=== PATIENT | female | born 1990 | race Caucasian/White ===

== ENCOUNTER 2020-11-20 12:53 | Emergency (ER) | payer BC ==
[~2020-11-20] VITALS: Ht 165.1 cm; Wt 53.5 kg
[2020-11-20] MEDS ORDERED: LIDOCAINE VISCOUS 2% UD 15 ML UDC MM ONE (13:00)
[2020-11-20] MEDS ORDERED: ONDANSETRON HCL/PF 4 MG/2 ML VIAL IVP ONE (13:00)
[2020-11-20] MEDS ORDERED: IV NS 0.9% 1,000 ML BAG IV ONE (13:00)
[2020-11-20] MEDS ORDERED: MAG HYDROX/AL HYDROX/SIMETH 30 ML UDC PO ONE (13:00)
[2020-11-20] MEDS ORDERED: FAMOTIDINE/PF INJ 20 MG/2 ML VIAL IV ONE ×2 (13:00→13:08)
[2020-11-20] MEDS ORDERED: MAG HYDROX/AL HYDROX/SIMETH 30 ML UDC ONE (13:07)
[2020-11-20] MEDS ORDERED: LIDOCAINE VISCOUS 2% UD 15 ML UDC ONE (13:07)
[2020-11-20] MEDS ORDERED: ONDANSETRON HCL/PF 4 MG/2 ML VIAL ONE (13:07)
[2020-11-20 13:17] LABS: BILIRUBIN,URINE Negative (NEGATIVE); COLOR,URINE YELLOW (YELLOW); LEUKOCYTE ESTERASE ,URINE Negative (NEGATIVE); NITRITE, URINE Negative (NEGATIVE); PH,URINE 8.5 (5.0-8.0); PROTEIN,URINE Negative (NEGATIVE); UGLUCOSE Negative (NEGATIVE); UROBILINOGEN,URINE 0.2 EU/dL (0.2)
[2020-11-20 13:18] LABS: BASOPHILS # (AUTO) 0.1 K/uL (0.0-0.2); EOSINOPHILS % (AUTO) 0.7 % (0.0-6.0); HEMATOCRIT 42 % (33-45); HEMOGLOBIN 14.1 g/dL (11.5-14.8); LYMPHOCYTES # (AUTO) 1.4 K/uL (0.8-4.8); LYMPHOCYTES % (AUTO) 10.8 % (20.0-44.0); MEAN CORPUSCULAR HGB CONC 33 g/dl (31.0-36.0); MEAN CORPUSCULAR VOLUME 92 fL (82-100); MONOCYTES # (AUTO) 0.7 K/uL (0.1-1.30); MONOCYTES % (AUTO) 5.4 % (2.0-12.0); NEUTROPHILS # (AUTO) 10.8 K/uL (1.8-8.9); NEUTROPHILS % (AUTO) 82.1 % (43.0-81.0); PLATELET COUNT (AUTO) 249 K/uL (150-450); RED BLOOD CELL COUNT(AUTO) 4.58 MIL/uL (4.0-5.2); WHITE BLOOD COUNT (AUTO) 13.1 K/uL (4.3-11.0)
[2020-11-20 13:23] LABS: CALCIUM, SERUM 10.3 mg/dL (8.5-10.1); CREATININE 0.8 mg/dL (0.6-1.3); POTASSIUM 3.5 mmol/L (3.5-5.1)
[2020-11-20 13:29] LABS: ALBUMIN 4.7 g/dL (3.4-5.0); BILIRUBIN,DIRECT 0.1 mg/dL (0.0-0.2); BILIRUBIN,TOTAL 0.4 mg/dL (0.2-1.0); TOTAL PROTEIN, SERUM 9.1 g/dL (6.4-8.2)
--- NOTE | 2020-11-20 13:30 | NUR ---
Patient came in to the er c/o abd pain and cramping, nausea. On room air, breathing evenly and unlabored. connected to the monitor and pulse ox. Kept comfortable, will continue to monitor accordingly.
[2020-11-20 13:38] LABS: BACTERIA,URINE Few /HPF (None Seen); RBC,URINE 0-3 /HPF (0-2); SQUAMOUS EPITHELIAL CELL,UR Few /HPF (None Seen); WBC,URINE 0-2 /HPF (0-3)
[2020-11-20 13:39] LABS: URINE AMORPHOUS PHOSPHATES Moderate /HPF (None Seen)
[2020-11-20] MEDS ORDERED: FAMO-131 PO (14:20)
[2020-11-20] MEDS ORDERED: OMEP20CA15 PO (14:20)
[2020-11-20] MEDS ORDERED: ONDA4TAB5 PO (14:20)
[2020-11-20 14:45] VITALS: BP 111/62
--- NOTE | 2020-11-20 14:45 | NUR ---
Patient discharged to home in stable condition. Written and verbal after care instructions given. Patient verbalizes understanding of instruction.IV removed. Catheter intact and site benign. Pressure and 4x4 applied to site. No bleeding noted.
== END 2020-11-20 14:45 | disposition home or self-care (01) ==
LOC: ER 13:06
DX: R10.13 Epigastric pain (principal); R19.7 Diarrhea, unspecified
CPT/HCPCS: 36415; 71045; 80048; 80076; 81001; 83690; 84703; 85025; 96361; 96374; 96375; 99284; J2405; J3490; J7030

== ENCOUNTER 2023-06-14 05:16 | Emergency (ER) | payer BC ==
[~2023-06-14] VITALS: Ht 165.1 cm; Wt 54.4 kg
[~2023-06-14 05:16] MED LIST: FAMO-131 PO; OMEP20CA15 PO; ONDA4TAB5 PO
[2023-06-14] MEDS ORDERED: LORAZEPAM 1 MG TABLET ONE (06:16)
[2023-06-14] MEDS ORDERED: LORAZEPAM 1 MG TABLET PO ONE (06:30)
[2023-06-14 06:52] VITALS: BP 118/80; TEMP 97.7; O2SAT 98
== END 2023-06-14 06:52 | disposition home or self-care (01) ==
LOC: ER 05:25
DX: F41.9 Anxiety disorder, unspecified (principal)